=== PATIENT | male | born 1960 | race Caucasian/White ===

== ENCOUNTER 2019-11-18 09:00 | Day surgery (SDC) | payer OTHER ==
[~2019-11-18] VITALS: Ht 175.3 cm; Wt 89.1 kg
[2019-11-18] MEDS ORDERED: LOSARTAN POTAS100 MG PO (10:14)
[2019-11-18] MEDS ORDERED: Norvasc10 MG PO (10:15)
[2019-11-18] MEDS ORDERED: Norco 5-325 Ta1 EACH PO (10:16)
--- NOTE | 2019-11-18 14:18 | NUR ---
11/18/19 1418 SIMON DOYLE PATIENT GIVEN MULTIPLE DOSES OF IV LABETALOL PER ANESTHESIA PARAMETERS. BP WITHIN RANGE OF ADMITTING. PATIENT REPORTEDLY DOES TAKE BP MEDICATION BUT THIS RN WAS ADVISED HE IS NOT CURRENTLY TAKING IT. PATIENT DENIES HEADACHE, DIZZINESS, PAIN IS CONTROLLED WITH A TOTAL OF 100 MCG OF IV FENTANYL.
== END 2019-11-18 14:10 | disposition home or self-care (01) ==
LOC: ORSCSDS 09:00
PROVIDERS: Podiatrist Foot & Ankle Surgery
PROC: 0QSM04Z Reposition Left Tarsal with Internal Fixation Device, Open Approach (ICD-10-PCS; principal; 2019-11-18 11:00)
DX: S92.012A Displaced fracture of body of left calcaneus, initial encounter for closed fracture (principal); I10 Essential (primary) hypertension; F17.210 Nicotine dependence, cigarettes, uncomplicated; B19.20 Unspecified viral hepatitis C without hepatic coma; Z79.899 Other long term (current) drug therapy
CPT/HCPCS: C1713; J0171; J0690; J1100; J1885; J2250; J2405; J2704; J3010; J7120

== ENCOUNTER 2024-05-04 09:30 | Inpatient (IN) | payer MEDICARE, OTHER ==
[~2024-05-04] VITALS: Ht 175.3 cm; Wt 93.4 kg
[~2024-05-04 09:30] MED LIST: LOSARTAN POTAS100 MG PO; Norco 5-325 Ta1 EACH PO; Norvasc10 MG PO
[2024-05-04 09:55] LABS: BASOPHILS ABSOLUTE AUTO 0.07 K/mm3 (0.00-0.23); BASOPHILS PERCENT AUTO 1 % (0-2); EOSINOPHILS ABSOLUTE AUTO 0.07 K/mm3 (0.00-0.68); EOSINOPHILS PERCENT AUTO 1 % (0-6); Hemoglobin 15.3 g/dL (13.5-17.5); IMMATURE GRAN ABSOLUTE AUTO 0.07 K/mm3 (0.00-0.10); IMMATURE GRAN PERCENT AUTO 1 % (0-1); LYMPHOCYTES ABSOLUTE AUTO 1.92 K/mm3 (0.84-5.20); LYMPHOCYTES PERCENT AUTO 21 % (21-46); MONOCYTES ABSOLUTE AUTO 1.07 K/mm3 (0.16-1.47); MONOCYTES PERCENT AUTO 12 % (4-13); Mean Corpuscular HGB Conc 34.8 g/dL (31.5-36.5); Mean Corpuscular Volume 95 fL (80-100); Mean Platelet Volume 9.6 fL (9.1-12.4); NEUTROPHILS PERCENT AUTO 65 % (41-73); Platelet Count 245 K/mm3 (150-400); RDW Coefficient Variation 13.6 % (11.7-14.2); RDW Standard Deviation 47.2 fL (35.1-46.3); Red Blood Cell Count 4.64 M/mm3 (4.30-5.90)
[2024-05-04 10:19] LABS: Albumin/Globulin Ratio 1.1 (0.8-1.8); Bilirubin, Total 0.3 mg/dL (0.1-1.0); Bun/Creatinine Ratio 13.2 (12.0-20.0); Calcium, Blood 8.5 mg/dL (8.5-10.1); Creatinine, Blood 0.68 mg/dL (0.60-1.20); Globulin, Blood 3.6 g/dL (2.2-4.0); Potassium, Blood 3.9 mmol/L (3.5-5.5); Total Protein, Blood 7.6 g/dL (6.4-8.2)
[2024-05-04] MEDS ORDERED: Aspirin 325 MG Tab PO ONE (10:50)
[2024-05-04] MEDS ORDERED: LORazepam 2 MG/ML 1ML Injection IV PRN ×3 (13:00)
[2024-05-04] MEDS ORDERED: HydrALAZINE HCl 20 MG / ML 1ML Vial IV PRN (13:05)
[2024-05-04] MEDS ORDERED: ChlordiazePOXIDE 25 MG Cap PO PRN ×2 (13:05)
[2024-05-04] MEDS ORDERED: Acetaminophen 325 MG TABLET PO PRN (13:10)
[2024-05-04 13:25] LABS: CHOL/HDL RATIO 4.7; Cholesterol 226 mg/dL (50-200); HDL Cholesterol 48 mg/dL (>39); Low Density Lipoprotein Chol 144 mg/dL (0-110); Triglycerides 172 mg/dL (30-160); Very Low Density Lipoprot Chol 34 mg/dL (6-32)
[2024-05-04 14:37] VITALS: BP 218/85
--- NOTE | 2024-05-04 14:37 | NUR ---
RN TO RN REPORT RECIEVED AT 1410, PATIENT RECIEVED TO UNIT AT 1265.
[2024-05-04 17:22] VITALS: BP 186/82
[2024-05-04] MEDS ORDERED: Nicotine 14 MG PATCH TOP SCH (18:00)
[2024-05-04 19:18] VITALS: BP 191/90
[2024-05-04 20:13] VITALS: BP 159/78
[2024-05-05 05:16] VITALS: BP 166/95
[2024-05-05 05:48] LABS: BASOPHILS ABSOLUTE AUTO 0.05 K/mm3 (0.00-0.23); BASOPHILS PERCENT AUTO 1 % (0-2); EOSINOPHILS ABSOLUTE AUTO 0.04 K/mm3 (0.00-0.68); EOSINOPHILS PERCENT AUTO 0 % (0-6); Hematocrit 43.3 % (37.0-53.0); Hemoglobin 15.4 g/dL (13.5-17.5); IMMATURE GRAN ABSOLUTE AUTO 0.06 K/mm3 (0.00-0.10); IMMATURE GRAN PERCENT AUTO 1 % (0-1); LYMPHOCYTES ABSOLUTE AUTO 1.73 K/mm3 (0.84-5.20); LYMPHOCYTES PERCENT AUTO 18 % (21-46); MONOCYTES ABSOLUTE AUTO 1.06 K/mm3 (0.16-1.47); MONOCYTES PERCENT AUTO 11 % (4-13); Mean Corpuscular HGB Conc 35.6 g/dL (31.5-36.5); Mean Corpuscular Volume 93 fL (80-100); Mean Platelet Volume 9.9 fL (9.1-12.4); NEUTROPHILS ABSOLUTE AUTO 6.75 K/mm3 (1.96-9.15); NEUTROPHILS PERCENT AUTO 70 % (41-73); Platelet Count 227 K/mm3 (150-400); RDW Coefficient Variation 13.5 % (11.7-14.2); RDW Standard Deviation 45.8 fL (35.1-46.3); Red Blood Cell Count 4.66 M/mm3 (4.30-5.90); White Blood Cell Count 9.69 K/mm3 (4.00-11.30)
[2024-05-05] MEDS ORDERED: Pantoprazole Sodium 40 MG Tab PO SCH (06:00)
[2024-05-05 06:07] LABS: Bun/Creatinine Ratio 16.4 (12.0-20.0); Calcium, Blood 8.8 mg/dL (8.5-10.1); Creatinine, Blood 0.61 mg/dL (0.60-1.20); Potassium, Blood 3.8 mmol/L (3.5-5.5)
--- NOTE | 2024-05-05 06:12 | NUR ---
Patient alert and oriented x4, resting comfortably in bed on room air. CIWA scores ranged from 2-15, PRN medications given twice, see eMAR. Patient continues to demonstrate minimal movement on right side, manipulating limbs using left arm to reposition self in bed. Patient voiding in urinal at side of bed or lying in bed overnight. Patient erroneously pulled IV, new IV placed to left hand and reinforced.
[2024-05-05 07:29] VITALS: BP 172/96
[2024-05-05] MEDS ORDERED: Nicotine 14 MG PATCH TOP SCH (09:00)
[2024-05-05] MEDS ORDERED: HydroCHLOROthiazide 25 mg Tab PO SCH (09:00)
[2024-05-05] MEDS ORDERED: Thiamine HCl 100 MG Tab PO SCH (09:00)
[2024-05-05] MEDS ORDERED: Atorvastatin 40 MG Tab PO SCH (09:00)
[2024-05-05] MEDS ORDERED: Losartan Potassium 50 MG Tab PO SCH (09:00)
[2024-05-05] MEDS ORDERED: Aspirin 81 MG TabEC PO SCH (09:00)
[2024-05-05] MEDS ORDERED: Clopidogrel Bisulfate 75 MG Tab PO SCH (09:00)
[2024-05-05] MEDS ORDERED: Enoxaparin 40 MG/0.4 ML SYR SC SCH (09:00)
[2024-05-05] MEDS ORDERED: Folic Acid 1 MG TAB PO SCH (09:00)
--- NOTE | 2024-05-05 17:31 | NUR ---
SHIFT SUMMARY PT AOX4, BR AT THIS TIME. CONDOM CATH IN PLACE AND DRAINING. HIS RIGHT SIDE IS FLACCID. BA ON. CIWA HAVE BEEN WNL THIS SHIFT. MEDICATED FOR BACK PAIN PER THE EMAR. HE CALLS AND MAKES HIS NEEDS KNOWN. UPDATED THE FAMILY THIS SHIFT. BED BATH COMPLETED. PT REPOSITIONED T/O THE SHIFT. CALL LIGHT WITHIN REACH, BED LOCKED AND IN THE LOWEST POSITION. WILL REPORT TO ONCOMING NURSE.
[2024-05-05 18:21] VITALS: BP 170/95
[2024-05-05 19:30] VITALS: BP 153/109
[2024-05-06 03:28] VITALS: BP 162/92
--- NOTE | 2024-05-06 05:45 | NUR ---
Shift Summary Pt R side is still mostly flaccid although he was able to move his R arm for me which he says is an improvement. He is AOX4, some slurring of words and difficulty finding words. He is on CIWA protocol, his highest CIWA was 8 this shift and he was given 50mg Librium. Currently is is around 2-4 CIWA. Pt did express the possiblity of ending his life after he gets home if he is going to be a cripple. I educated/offered hope that function can possibly return but it takes time, patience and hard work. He was receptive to this.
[2024-05-06 07:13] VITALS: BP 143/93
--- NOTE | 2024-05-06 09:51 | NUR ---
Spiritual Care Consult - Dr. Subramanian In response to a Spiritual Care Consult as well as a referral from Speech Therapist Maureen, I visited the Pt. with his mother Heydi at bedside. The Pt. welcomed my visit, but is unsettled by his hospitalization. Listen with empathy and a calming presence, I seek to normalize the Pt. experience. With theratuptic listening the Pt. displays evidence of being willing to give therapy a try, but verbalized that he "does not want to be in the hospital for long" Pt. verbalized that a doctor spoke of the possibility of home health support. Prayed with Pt. and then spoke with Pts. mother at bedside and considered matters of [place] and belief. Both Pt. and mother verbalized gratitude for the spiritual care visit. Will remain available to the Pt. throughout the day.
[2024-05-06 15:21] VITALS: BP 155/88
--- NOTE | 2024-05-06 18:43 | NUR ---
SHIFT SUMMARY: PATIENT A/OX4, PLEASANT AND COOPERATIVE c CARE. PATIENT HAS R FACIAL DROOP AND FLACCID TO R UPPER/LOWER EXTREMITY. PATIENT REPORTS SOME SENSATION TO AFFECTED SITE. PATIENT DENIES CP/PRESSURE, N/V, SOB AND DIZZINESS. PATIENT ON TELE, SB-ST HR RANGES 40'S TO LOW 100'S BPM. CIWA SCORE OF 3. PATIENT ABLE TO DANGLE ON THE EOB X2 c SUPERVISION. PATIENT HAS CONDOM CATH PLACED PER REQUEST FOR URGENCY, TOLERATING WELL. PATIENT ON HEART HEALTHY SOFT BITE SIZED DIET AND THIN LIQUIDS c DIRECT SUPERVISION. PATIENT WORK c PT/OT/ST TODAY. PT/OT RECOMMENDING SNF/IRU. PATIENT RESTING IN BED ON/OFF T/O SHIFT. PATIENT HAS NO COMPLAINTS OR DENIES NEW CONCERNED THIS SHIFT. VITAL SIGNS REVIEWED. BED ALARM ON FOR SAFETY. CALL LIGHT IN REACH.
[2024-05-06 19:21] VITALS: BP 152/97
[2024-05-07 02:59] VITALS: BP 130/95
[2024-05-07 07:09] VITALS: BP 178/88
--- NOTE | 2024-05-07 07:32 | NUR ---
AO4 PT REPORTS RESTING MORE THAN YESTERDAY, AWOKE ONCE DURING NIGHT, EDUCATION RENDERED RE ELEVATION AND POSITIONING OF R SIDE PT WITH PAIN TO R LEG SEEEMAR , CALL LIGHT WN REACH, FALL PRECAUTIONS MAINTAINED.
--- NOTE | 2024-05-07 08:40 | NUR ---
BEGINNING OF SHIFT NOTE: PATIENT LAYING IN BED c HOB ELEVATED ABOUT 45 DEGREES, CONVERSING c FAMILY AT BEDSIDE. PATIENT A/OX4, ANSWER TO QUESTIONS APPROPRIATELY, PLEASANT AND COOPERATIVE c CARE. PATIENT FOLLOWS COMMAND WELL, CONTINUES TO HAVE R SIDED FACIAL DROOPED, FLACCID TO R UPPER AND LOWER EXTREMITY, REPORTS SOME SENSATIONS TO AFFECTED SITE. PATIENT ALSO REPORTS PAIN TO BACK, MEDICATED c PRN PAIN MEDS PER EMAR. PERRLA, RA, DENIES CP/PRESSURE, SOB, N/V AND DIZZINESS. ON TELE, SR HR IN THE HIGH 60'S BPM. HYPERTENSIVE, MEDICATED c SCHEDULED BP MEDS THIS AM. PATIENT STILL HAS CONDOM CATH FOR URGENCY, TOLERATING WELL. [facility] PATIENT T/O SHIFT. BED ALARM ON FOR SAFETY. CALL LIGHT IN REACH.
[2024-05-07 15:15] VITALS: BP 129/77
--- NOTE | 2024-05-07 17:43 | NUR ---
SHIFT SUMMARY: NO CHANGES THIS SHIFT, PATIENT A/OX4, PLEASANT AND COOPERATIVE c CARE. PATIENT REPORTS ANXIOUS D/T MEDICAL CONDITION, MEDICATED X1 FOR ANXIETY c GOOD EFFECT. PATIENT ALSO REPORTS PAIN TO BACK, MEDICATED X2 c PO TYLENOL. PATIENT STILL HAS CONDOM CATH IN PLACED FOR URGENCY PER REQUEST, TOLERATING WELL. PATIENT IS EATING AND DRINKING c DIRECT SUPERIVION. PATIENT HAS BEEN DOING EXCERCISE TO HIS R UPPER AND LOWER EXTREMITY WHILE LAYING IN BED T/O SHIFT. VITAL SIGNS REVIEWED. BED ALARM ON FOR SAFETY. CALL LIGHT IN REACH.
[2024-05-07 19:21] VITALS: BP 109/83
[2024-05-07] MEDS ORDERED: Melatonin 5 MG Tablet PO PRN (22:30)
[2024-05-08 03:50] VITALS: BP 155/88
--- NOTE | 2024-05-08 06:21 | NUR ---
Patient alert and oriented x3, VSS, resting comfortably in bed. Patient complained of difficulty sleeping, order received and placed for PRN melatonin, which the patient received; PRN Librium also given x1 for agitation/anxiety/restlessness. Condom catheter in place and collecting output appropriately. Patient slept several hours, tolerating well. Telemetry continued, demonstrating sinus rhythm/sinus tachycardia rate 60-110's. Patient tolerating room air appropriately.
[2024-05-08 07:45] VITALS: BP 159/83
[2024-05-08] MEDS ORDERED: Losartan Potassium 50 MG Tab PO SCH (09:00)
--- NOTE | 2024-05-08 09:00 | NUR ---
Pt laying in bed awake a/ox3, cooperative with care, follows commands well, lungs are clear in upper clar[place], dim in bases [place] right side, currently on r/a, resp even and unlabored, no cough noted, hrr, no edema noted, ppp+2, cap refill <3 sec, vs stable, afebrile, piv to left fa site is clear and patent, btx4, abd flat soft nontender, voids via condom cath, urine is clear yellow, skin c/w/d, moves left side without diff, right hand is flacid, but can order picker/assembler arm slightly, no movement in right leg, has right side facial droop but able to swallow without diff, call light in reach.
[2024-05-08 09:36] VITALS: BP 131/91
[2024-05-08] MEDS ORDERED: Acetaminophen325 M1 PO (14:06)
[2024-05-08] MEDS ORDERED: CLOP75 PO (14:07)
[2024-05-08] MEDS ORDERED: ATOR80 PO (14:07)
[2024-05-08] MEDS ORDERED: Aspir 8181 MG PO (14:07)
[2024-05-08] MEDS ORDERED: LOSA50 PO (14:08)
[2024-05-08] MEDS ORDERED: HYDCHL25 PO (14:08)
[2024-05-08] MEDS ORDERED: Nicoderm Cq1 EAC1 TOP (14:09)
[2024-05-08] MEDS ORDERED: MELATONIN5 M1 PO (14:09)
[2024-05-08] MEDS ORDERED: PANT20 PO (14:10)
[2024-05-08] MEDS ORDERED: MULVITA PO (14:10)
--- NOTE | 2024-05-08 16:01 | NUR ---
pt has been transfered to [facility], transport here to take him to [facility], iv removed intact, called report to recieving nurse. left via gurney with transport in attendance, and his belongings went with him.
== END 2024-05-08 14:01 | disposition hospice, inpatient (51) | DRG 65 ==
LOC: ER 09:30 → MEDS 09:31
PROVIDERS: Emergency Medicine; ADMIT Family Medicine
DX: I63.9 Cerebral infarction, unspecified (principal); G81.91 Hemiplegia, unspecified affecting right dominant side; E78.5 Hyperlipidemia, unspecified; I10 Essential (primary) hypertension; Z66 Do not resuscitate; R29.810 Facial weakness; F17.210 Nicotine dependence, cigarettes, uncomplicated; F10.20 Alcohol dependence, uncomplicated; Z79.899 Other long term (current) drug therapy; Z79.891 Long term (current) use of opiate analgesic; Z98.890 Other specified postprocedural states; Z91.148 Patient's other noncompliance with medication regimen for other reason
CPT/HCPCS: 36415; 70450; 70496; 70498; 70551; 80048; 80053; 80061; 85025; 92526; 92610; 93005; 93010; 93306; 97112; 97162; 97166; 99285-25; A9270; G0378; J0360; J1650; J2060; Q9967